=== PATIENT | male | born 1940 | race Caucasian/White ===

== ENCOUNTER 2016-08-10 00:01 | Emergency (ER) | payer MEDICARE ==
--- NOTE | 2016-08-10 02:25 | ERRECORD ---
[facility] EMERGENCY RECORD HPI GENERAL (:16 AGRE) CHIEF COMPLAINT: Patient presents for evaluation of HIGH BLOOD PRESSURE. HISTORIAN: History provided by patient, WAS TAKEN OFF HIS BLOOD PRESSURE MEDICATIONS AFTER ANGIOEDEMA WITH SOPHIE INHIBITORS. HIS CARDIVELOL WAS RESTARTED 3 DAYS AGO BUT HIS BLOOD PRESSURE IS REMAINING ELEVATED AT HOME. IT IS WORST TONIGHT. NO SOB, GARCIA, CHEST PAIN, NEURO CHANGES OR OTHER ASSOCIATED SYMPTOMS. SAYS TOOK THE CARVEDILOL X 2 IN PAST 24 HOURS, BUT NO HELP WITH HIS BLOOD PRESSURE. MECHANISM OF INJURY: Known mechanism. LOCATION: No localizing symptoms. QUALITY: NO PAINS. SEVERITY: Maximum severity of symptoms severe, Currently symptoms are severe. TIME COURSE: Gradual onset of symptoms, Symptoms are worsening. ASSOCIATED WITH: No associated symptoms, Denies any other complaints. EXACERBATED BY: Patient's condition exacerbated by nothing. RELIEVED BY: Patient's condition relieved by nothing. ROS (:19 AGRE) CONSTITUTIONAL: Historian denies chills, denies fever, denies lethargy, denies malaise. EYES: Historian denies eye pain, denies eye redness. ENT: Historian denies rhinorrhea, denies sinus pain, denies sore throat. CARDIOVASCULAR: Historian denies chest pain, denies dyspnea on exertion. RESPIRATORY: Historian denies cough, denies shortness of breath. GI: Historian denies abdominal pain, denies nausea, denies vomiting. MUSCULOSKELETAL: Historian denies back pain, denies neck pain. SKIN: Negative skin review of systems, Historian denies skin changes, denies skin lesions. NEUROLOGIC: Historian denies headache, denies mental status changes. PSYCHIATRIC: Negative psychiatric review of systems, Historian denies anxiety. PAST MEDICAL HISTORY (:05 EPIE) MEDICAL HISTORY: Notes: BPH, Past medical history includes history of hypertension and ingunal hernia bilat, recent chricoid procedure for angioedema. MALE SURGICAL HISTORY: HERNIA REPAIR. TURP, Vein stripping of right leg. PSYCHIATRIC HISTORY: No previous psychiatric history, no previous emergency department psychiatric evaluations. SOCIAL HISTORY: , Patient denies alcohol use, Patient &a-1R&a+25V*p+0X*e2297M*c202B*c15G*c2P*p-0X&a-25V&a+1R Name: Sharath House JR, DOB: 1940 M76 MedRec: [id number] AcctNum: [id number] Prepared: Aurelai Aug 10, 2016 03:08 by Interface Page 1 of 4 pMD [facility] EMERGENCY RECORD denies drug use, Patient currently uses tobacco, smokes cigarettes, daily, Patient smokes 2 packs per day. KNOWN ALLERGIES SOPHIE Inhibitors HYDROcodone bitartrate (bulk) CURRENT MEDICATIONS (: KASA) carvedilol: TABLET : Strength - 3.125 mg : ORAL Patient Dose: 1 tab(s) Oral once a day (in the morning). VITAL SIGNS VITAL SIGNS: BP: 211/108, Pulse: 62, Resp: 20, Pain: 0, O2 sat: 100 on Room Air, Time: 08/10/2016 01:03. (01:03 EPIE) BP: 192/92, Pulse: 62, O2 sat: 98 on Room Air, Time: 08/10/2016 01:34. (01:34 KASA) BP: 161/72, Pulse: 68, O2 sat: 95 on Room Air, Time: 08/10/2016 02:00. (02:00 KASA) BP: 156/73, Pulse: 67, O2 sat: 96 on Room Air, Time: 08/10/2016 02:05. (02:05 KASA) BP: 162/76, Pulse: 68 (Regular), Resp: 20 (Non-Labored), Temp: 98.4 (Oral), O2 sat: 97 on Room Air, Time: 08/10/2016 02:32. (02:32 LEEW) BP: 162/76, Pulse: 68, Resp: 20, Temp: 98.4, Time: 08/10/2016 02:34. (02:34 LEE) PHYSICAL EXAM (01:19 AGRE) CONSTITUTIONAL: Vital signs reviewed, Patient afebrile, Respiratory rate normal, Patient appears non toxic, Patient appears pain free, Patient alert and oriented to person, place and time, NURSES NOTES REVIEWED. HEAD: Head exam included findings of head atraumatic, normocephalic. EYES: Eye exam included findings of eyelids normal to inspection, Extraocular muscles intact, Conjunctiva normal, Sclera normal. ENT: Ear exam normal, Nose exam normal, Mouth exam normal. NECK: Neck exam normal, Neck exam included findings of normal range of motion, no meningeal signs, no cervical adenopathy. RESPIRATORY CHEST: Respiratory and chest exam normal, Respiratory exam included findings of no respiratory distress, Breath sounds clear, No wheezing, No rales, No rhonchi, Breath sounds not diminished. CARDIOVASCULAR: Cardiovascular exam included findings of heart rate regular rate and rhythm, Heart sounds normal, normal S1, normal S2, no murmurs, no rub, no gallop. ABDOMEN MALE: Abdominal exam normal, Abdominal exam included findings of abdomen nontender, Bowel sounds normal, Liver normal, Spleen normal, no distension, no mass. BACK: Back exam normal, Back exam included findings of normal inspection, range of motion normal. &a-1R&a+25V*p+0X*t7448Y*c202B*c15G*c2P*p-0X&a-25V&a+1R Name: Sharath House JR : 1940 M76 MedRec: [id number] AcctNum: [id number] Prepared: Aurelia Aug 10, 2016 03:08 by Interface Page 2 of 4 pMD [facility] EMERGENCY RECORD UPPER EXTREMITY: Upper extremity exam included findings of inspection normal, Range of motion normal. LOWER EXTREMITY: Lower extremity exam included findings of inspection normal, Range of motion normal, Motor strength normal, no edema, no calf tenderness, no palpable cords. NEURO: Neuro exam normal, Neuro exam findings include patient oriented to person, place and time, Speech normal, Gait normal, Memory normal, Cranial nerves intact, no focal motor deficits. SKIN: Skin exam normal, Skin exam included findings of skin warm, dry, and normal in color. LYMPHATIC: Lymphatic exam normal, Lymphatic exam included findings of cervical nodes normal. PSYCHIATRIC: Psychiatric exam normal, Normal affect. MEDICATION ADMINISTRATION SUMMARY Drug Name: hydrALAZINE injection, Dose Ordered: 20 mg, Route: IV Push, Status: Given, Time: 01:40 08/10/2016, Detailed record available in Medication Service section. DOCTOR NOTES (02:15 AGRE) TEXT: MARKED IMPROVEMENT IN BLOOD PRESSURE WITH THE HYDRALAZINE. PATIENT REMAINED ALERT AND ORIENTED WITHOUT NEURO CHANGES. DISCUSSED WITH HIM AND FAMILY A SHORT TERM PRESCRIPTION FOR THE HYDRALAZINE AND TO FOLLOW UP WITH HIS PHYSICIAN THIS WEEK ABOUT A SUSPECT ARTIST SUPERVISOR TREATMENT PLAN. HE EXPRESSED UNDERSTANDING AND AGREEMENT. PATIENT STATUS: Patient has improved since arrival to emergency department. PATIENT PLAN: The patient will be discharged. DATA REVIEWED: Discussed with family. PROBLEM LIST No recorded problems DIAGNOSIS (: YAZ) FINAL: PRIMARY: Hypertension. PRESCRIPTION (: [facility]) hydrALAZINE oral: TABLET : 10 mg : ORAL : Quantity: 1 Unit: tab(s) Route: ORAL Schedule: every 6 hours Dispense: 20 Unit: tab(s) May substitute. Refills: No Refills . NOTES: No Refills. DISPOSITION PATIENT: Disposition Type: Discharge, Disposition: *Discharge Home, Condition: Improved. (: YAZ) Patient left the department. (03: VALENTIN) Almazan: &a-1R&a+25V*p+0X*[id number]*c202B*c15G*c2P*p-0X&a-25V&a+1R Name: HarshSharath JR : 1940 76 MedRec: [id number] AcctNum: [id number] Prepared: Aurelia Aug 10, 2016 03:08 by Interface Page 3 of 4 pMD [facility] EMERGENCY RECORD YAZ=MD Willi, Tor PENA=RAMÓN Dejesus, Lisa HANSON=RAMÓN Wolfe, Siri GALVAN=RAMÓN Cotter, Ryan &a-1R&a+25V*p+0X*[id number]*c202B*c15G*c2P*p-0X&a-25V&a+1R Name: Harsh Sharath Hong : 1940 76 MedRec: [id number] AcctNum: [id number] Prepared: Aurelia Aug 10, 2016 03:08 by Interface Page 4 of 4 pMD MTDD
--- NOTE | 2016-08-10 02:28 | PICIS ---
[facility] EMERGENCY RECORD TRIAGE (ThuAug 10, 2016 01:01 EPIE) TRIAGE NOTES: Pt states that on the he had allergic rxn. Pt was taken off of blood pressure medication. Pt has been on new BP medication for 3 days. BP now states systolic is 205. (ThuAug 10, 2016 01:01 EPIE) PATIENT: NAME: Sharath House JR, AGE: 76, GENDER: male, : Maynard 1940, TIME OF GREET: ThuAug 10, 2016 00:02, PREFERRED LANGUAGE: Bulgarian, ETHNICITY: Not or , ECODE BILLING MAP: [facility], SSN: [id number], Zip Code: [address], KG WEIGHT: 72.57, PHONE: , , , PERSON ID: [id number], PCP: Johanna VARELA POLLACHI. (Maynard Aug 10, 2016 01:01 EPIE) COMPLAINT: High Blood Pressure. (Maynard Aug 10, 2016 01:01 EPIE) ADMISSION: URGENCY: 3 Urgent, ADMISSION SOURCE: Home, TRANSPORT: CAR, BED: TRIAGE. (ThuAug 10, 2016 01:01 EPIE) TRIAGE SCREENING: Patient denies suicidal ideation, Patient denies presence of domestic violence. (:05 EPIE) PROVIDERS: TRIAGE NURSE: Lisa Dejesus RN. (Maynard Aug 10, 2016 01:01 EPIE) VITAL SIGNS: BP 211/108, Pulse 62, Resp 20, Pain 0, O2 Sat 100, on Room Air, Time 08/10/2016 01:03. (01:03 EPIE) PREVIOUS VISIT ALLERGIES: Star Inhibitors, HYDROcodone bitartrate (bulk), Sulfa (Sulfonamide Antibiotics). (ThuAug 10, 2016 01:01 EPIE) Star Inhibitors, HYDROcodone bitartrate (bulk), Sulfa (Sulfonamide Antibiotics). (01:05 EPIE) KNOWN ALLERGIES STAR Inhibitors HYDROcodone bitartrate (bulk) CURRENT MEDICATIONS (:18 KASA) carvedilol: TABLET : Strength - 3.125 mg : ORAL Patient Dose: 1 tab(s) Oral once a day (in the morning). VITAL SIGNS VITAL SIGNS: BP: 211/108, Pulse: 62, Resp: 20, Pain: 0, O2 sat: 100 on Room Air, Time: 08/10/2016 01:03. (01:03 EPIE) BP: 192/92, Pulse: 62, O2 sat: 98 on Room Air, Time: 08/10/2016 01:34. (01:34 KASA) BP: 161/72, Pulse: 68, O2 sat: 95 on Room Air, Time: 08/10/2016 02:00. (02:00 KASA) BP: 156/73, Pulse: 67, O2 sat: 96 on Room Air, Time: 08/10/2016 02:05. (02:05 KASA) BP: 162/76, Pulse: 68 (Regular), Resp: 20 (Non-Labored), Temp: 98.4 (Oral), O2 sat: 97 on Room Air, Time: 08/10/2016 02:32. (02:32 LEEW) BP: 162/76, Pulse: 68, Resp: 20, Temp: 98.4, Time: 08/10/2016 02:34. (02:34 LEEW) &a-1R&a+25V*p+0X*g5565F*c202B*c15G*c2P*p-0X&a-25V&a+1R Name: Sharath House JR : 1940 M76 MedRec: [id number] AcctNum: [id number] Prepared: Aurelia Aug 10, 2016 03:13 by Interface Page 1 of 6 pMD [facility] EMERGENCY RECORD NURSING ASSESSMENT: CARDIOVASCULAR (:20 KASA) CONSTITUTIONAL: Patient arrives ambulatory, Gait steady, History obtained from patient, Patient appears comfortable, Patient cooperative, Patient alert, Oriented to person, place and time, Skin warm, Skin dry, Skin normal in color, Mucous membranes pink, Mucous membranes moist, Patient complains of High Blood Pressure, Pt states that on the he had allergic rxn. Pt was taken off of blood pressure medication. Pt has been on new BP medication for 3 days. BP now states systolic is 205. CARDIOVASCULAR: Cardiovascular assessment findings include heart rate normal, Heart sounds normal, Associated with diaphoresis, no associated dyspnea, no associated dizziness, no associated weakness. RESPIRATORY/CHEST: Breath sounds clear, Respiratory assessment findings include respiratory effort easy, Respirations regular, Conversing normally, Neck and chest exam findings include trachea midline, Chest expansion equal, Chest movement symmetrical, no signs of distress, no associated cough noted, no associated fever. SAFETY: Side rails up, Cart/Stretcher in lowest position, Family at bedside, Call light within reach, Hospital ID band on. NURSING PROCEDURE: DISCHARGE NOTE (02:34 LEE) DISCHARGE: Patient discharged to home, ambulating without assistance, family driving, accompanied by other family member, Summary of Care printed/ provided, Discharge instructions given to patient, Discharge instructions given to Daughter, Simple or moderate discharge teaching performed, by Ryan Cotter Rn, As discussed by Dr. Márquez, follow those instructions. Take medication Hydralazine as instructed then followup with PCP Thursday after the ., Prescriptions given and instructions on side effects given, Name of prescription(s) given: Hydralazine, Above person(s) verbalized understanding of discharge instructions and follow-up care, Patient treated and evaluated by physician. BELONGINGS: Belongings and valuables with patient at time of discharge include:, Belongings remain with patient, Valuables remain with patient. VITAL SIGNS: BP: 162, / 76, Pulse: 68, Resp: 20, Temp: 98.4. NURSING PROCEDURE: IV (:37 KASA) PATIENT IDENITIFIER: Patient actively involved in identification process, Patient's identity verified by patient stating name, Patient's identity verified by patient stating date. IV SITE 1: IV therapy indicated for medication administration, IV established, to the right antecubital, using a 20 gauge catheter, in one attempt, IV site prepped with chloraprep, Saline lock established, Flushed with normal saline (mls): 10, Labs drawn at time of placement, labeled in the presence of the patient and sent to lab. FOLLOW-UP SITE 1: After procedure, sterile transparent dressing applied. SAFETY: Side rails up, Cart/Stretcher in lowest position, Family &a-1R&a+25V*p+0X*s1192M*c202B*c15G*c2P*p-0X&a-25V&a+1R Name: Sharath House JR : 1940 M76 MedRec: [id number] AcctNum: [id number] Prepared: Aurelia Aug 10, 2016 03:13 by Interface Page 2 of 6 pMD [facility] EMERGENCY RECORD at bedside, Call light within reach, Hospital ID band on. MEDICATION ADMINISTRATION SUMMARY Drug Name: hydrALAZINE injection, Dose Ordered: 20 mg, Route: IV Push, Status: Given, Time: 01:40 08/10/2016, Detailed record available in Medication Service section. MEDICATION SERVICE (01:40 AGRE) hydrALAZINE injection: Order: hydrALAZINE injection (hydralazine HCl) - Dose: 20 mg : IV Push Ordered by: Tor Márquez MD Entered by: MD Aurelia Reyes Aug 10, 2016 01:16 , Acknowledged by: RAMÓN Alvarado Aug 10, 2016 01:37 Documented as given by: RAMÓN Alvarado Aug 10, 2016 01:40 Patient, Medication, Dose, Route and Time verified prior to administration. Amount given: 20 mg, IV SITE #1 IVP, initial medication, Slowly, Catheter placement confirmed via flush prior to administration, IV site without signs or symptoms of infiltration during medication administration, No swelling during administration, No drainage during administration, IV flushed after administration, Correct patient, time, route, dose and medication confirmed prior to administration, Patient advised of actions and side-effects prior to administration, Allergies confirmed and medications reviewed prior to administration, Patient in position of comfort, Side rails up, Cart in lowest position, Family at bedside. HPI GENERAL (01:16 AGRE) CHIEF COMPLAINT: Patient presents for evaluation of HIGH BLOOD PRESSURE. HISTORIAN: History provided by patient, WAS TAKEN OFF HIS BLOOD PRESSURE MEDICATIONS AFTER ANGIOEDEMA WITH STAR INHIBITORS. HIS CARDIVELOL WAS RESTARTED 3 DAYS AGO BUT HIS BLOOD PRESSURE IS REMAINING ELEVATED AT HOME. IT IS WORST TONIGHT. NO SOB, GARCIA, CHEST PAIN, NEURO CHANGES OR OTHER ASSOCIATED SYMPTOMS. SAYS TOOK THE CARVEDILOL X 2 IN PAST 24 HOURS, BUT NO HELP WITH HIS BLOOD PRESSURE. MECHANISM OF INJURY: Known mechanism. LOCATION: No localizing symptoms. QUALITY: NO PAINS. SEVERITY: Maximum severity of symptoms severe, Currently symptoms are severe. TIME COURSE: Gradual onset of symptoms, Symptoms are worsening. ASSOCIATED WITH: No associated symptoms, Denies any other complaints. EXACERBATED BY: Patient's condition exacerbated by nothing. RELIEVED BY: Patient's condition relieved by nothing. &a-1R&a+25V*p+0X*q1913W*c202B*c15G*c2P*p-0X&a-25V&a+1R Name: Sharath House JR : 1940 M76 MedRec: [id number] AcctNum: [id number] Prepared: Aurelia Aug 10, 2016 03:13 by Interface Page 3 of 6 pMD [facility] EMERGENCY RECORD ROS ( AGRE) CONSTITUTIONAL: Historian denies chills, denies fever, denies lethargy, denies malaise. EYES: Historian denies eye pain, denies eye redness. ENT: Historian denies rhinorrhea, denies sinus pain, denies sore throat. CARDIOVASCULAR: Historian denies chest pain, denies dyspnea on exertion. RESPIRATORY: Historian denies cough, denies shortness of breath. GI: Historian denies abdominal pain, denies nausea, denies vomiting. MUSCULOSKELETAL: Historian denies back pain, denies neck pain. SKIN: Negative skin review of systems, Historian denies skin changes, denies skin lesions. NEUROLOGIC: Historian denies headache, denies mental status changes. PSYCHIATRIC: Negative psychiatric review of systems, Historian denies anxiety. PAST MEDICAL HISTORY (: EPIE) MEDICAL HISTORY: Notes: BPH, Past medical history includes history of hypertension and ingunal hernia bilat, recent chricoid procedure for angioedema. MALE SURGICAL HISTORY: HERNIA REPAIR. TURP, Vein stripping of right leg. PSYCHIATRIC HISTORY: No previous psychiatric history, no previous emergency department psychiatric evaluations. SOCIAL HISTORY: , Patient denies alcohol use, Patient denies drug use, Patient currently uses tobacco, smokes cigarettes, daily, Patient smokes 2 packs per day. PHYSICAL EXAM (: AGRE) CONSTITUTIONAL: Vital signs reviewed, Patient afebrile, Respiratory rate normal, Patient appears non toxic, Patient appears pain free, Patient alert and oriented to person, place and time, NURSES NOTES REVIEWED. HEAD: Head exam included findings of head atraumatic, normocephalic. EYES: Eye exam included findings of eyelids normal to inspection, Extraocular muscles intact, Conjunctiva normal, Sclera normal. ENT: Ear exam normal, Nose exam normal, Mouth exam normal. NECK: Neck exam normal, Neck exam included findings of normal range of motion, no meningeal signs, no cervical adenopathy. RESPIRATORY CHEST: Respiratory and chest exam normal, Respiratory exam included findings of no respiratory distress, Breath sounds clear, No wheezing, No rales, No rhonchi, Breath sounds not diminished. CARDIOVASCULAR: Cardiovascular exam included findings of heart rate regular rate and rhythm, Heart sounds normal, normal S1, normal S2, no murmurs, no rub, no gallop. &a-1R&a+25V*p+0X*n9136R*c202B*c15G*c2P*p-0X&a-25V&a+1R Name: Sharath House JR : 1940 M76 MedRec: [id number] AcctNum: [id number] Prepared: Aurelia Aug 10, 2016 03:13 by Interface Page 4 of 6 pMD [facility] EMERGENCY RECORD ABDOMEN MALE: Abdominal exam normal, Abdominal exam included findings of abdomen nontender, Bowel sounds normal, Liver normal, Spleen normal, no distension, no mass. BACK: Back exam normal, Back exam included findings of normal inspection, range of motion normal. UPPER EXTREMITY: Upper extremity exam included findings of inspection normal, Range of motion normal. LOWER EXTREMITY: Lower extremity exam included findings of inspection normal, Range of motion normal, Motor strength normal, no edema, no calf tenderness, no palpable cords. NEURO: Neuro exam normal, Neuro exam findings include patient oriented to person, place and time, Speech normal, Gait normal, Memory normal, Cranial nerves intact, no focal motor deficits. SKIN: Skin exam normal, Skin exam included findings of skin warm, dry, and normal in color. LYMPHATIC: Lymphatic exam normal, Lymphatic exam included findings of cervical nodes normal. PSYCHIATRIC: Psychiatric exam normal, Normal affect. EVENTS TRANSFER: Triage to Emergency Triage. (Aurelia Aug 10, 2016 01:01 EPIE) Emergency Triage to Emergency Room -03. (01:02 EPIE) Removed from Emergency Emergency Room -03. (03:06 KASA) O2SAT INTERPRETATION (02:14 AGRE) O2SAT: Continuous pulse oximetry, Oxygen saturation 96%, on room air, Oxygen saturation interpretation: Normal, No intervention required. DOCTOR NOTES (02:15 AGRE) TEXT: MARKED IMPROVEMENT IN BLOOD PRESSURE WITH THE HYDRALAZINE. PATIENT REMAINED ALERT AND ORIENTED WITHOUT NEURO CHANGES. DISCUSSED WITH HIM AND FAMILY A SHORT TERM PRESCRIPTION FOR THE HYDRALAZINE AND TO FOLLOW UP WITH HIS PHYSICIAN THIS WEEK ABOUT A PRINTED FORMS PROOFREADER TREATMENT PLAN. HE EXPRESSED UNDERSTANDING AND AGREEMENT. PATIENT STATUS: Patient has improved since arrival to emergency department. PATIENT PLAN: The patient will be discharged. DATA REVIEWED: Discussed with family. PROBLEM LIST No recorded problems DIAGNOSIS (02:05 [facility]) FINAL: PRIMARY: Hypertension. DISPOSITION PATIENT: Disposition Type: Discharge, Disposition: *Discharge &a-1R&a+25V*p+0X*a4116O*c202B*c15G*c2P*p-0X&a-25V&a+1R Name: Sharath House JR : 1940 M76 MedRec: [id number] AcctNum: [id number] Prepared: Aurelia Aug 10, 2016 03:13 by Interface Page 5 of 6 pMD [facility] EMERGENCY RECORD Home, Condition: Improved. (02:05 [facility]) Patient left the department. (03:06 [facility]) INSTRUCTION (02:12 [facility]) DISCHARGE: HYPERTENSION, ESTABLISHED, OUT OF CONTROL. FOLLOWUP: Johanna VARELA, KEO, Internal Medicine, [address] [place] [id number], [phone]. SPECIAL: START THE HYDRALAZINE AND CHECK YOUR BLOOD PRESSURE REGULARLY TO MAKE SURE IT IS CONTROLLING THE PRESSURE. FOLLOW UP WITH YOUR PHYSICIAN THIS WEEK ABOUT CHANGING YOUR MEDICATIONS. YOU PHYSICIAN MAY NOT WANT TO CONTINUE THE HYDRALAZINE FOR A LONG TIME IT CAN A LUPUS LIKE RESPONSE IN SOME PEOPLE DISCUSSED. PRESCRIPTION (02:09 [facility]) hydrALAZINE oral: TABLET : 10 mg : ORAL : Quantity: 1 Unit: tab(s) Route: ORAL Schedule: every 6 hours Dispense: 20 Unit: tab(s) May substitute. Refills: No Refills . NOTES: No Refills. IMAGING *DISCHARGE INSTRUCTIONS RECEIPT: Image captured from scanner. (02:38 [facility]) *SUPPLY CHARGE SHEET: Image captured from scanner. (02:39 [facility]) ADMIN (02:17 [facility]) DIGITAL SIGNATURE: MD Márquez Andrea. Almazan: AGRE=MD Willi, Tor PENA=RAMÓN Dejesus, Lisa HANSON=RAMÓN Wolfe, Siri GALVAN=RAMÓN Cotter, Ryan &a-1R&a+25V*p+0X*i7882R*c202B*c15G*c2P*p-0X&a-25V&a+1R Name: Sharath House JR : 1940 M76 MedRec: [id number] AcctNum: [id number] Prepared: Aurelia Aug 10, 2016 03:13 by Interface Page 6 of 6 pMD MTDD
== END 2016-08-10 02:34 | disposition home or self-care (01) ==
LOC: NAV ERS 00:01
DX: I10 Essential (primary) hypertension (principal); F17.210 Nicotine dependence, cigarettes, uncomplicated
CPT/HCPCS: 96374; J0360

== ENCOUNTER 2018-04-20 21:21 | Emergency (ER) | payer MEDICARE ==
[2018-04-20] MEDS ORDERED: Nitroglycerin 2% Ointment 1 INCH/1 GM Packet ONE (21:48)
[2018-04-20] MEDS ORDERED: cloNIDine 0.1 MG TAB ONE (21:51)
[2018-04-20 21:54] LABS: #Basophils 0.1 thou/uL (0.0-0.2); #Eosinphils 0.3 thou/uL (0.0-0.7); #Lymphocytes 4.4 thou/uL (1.20-3.40); #Monocytes 1.2 thou/uL (0.11-0.59); #Neutrophils 4.4 thou/uL (1.40-6.50); %Basophils 1.2 % (0.0-1.0); %Monocytes 11.4 % (0.0-10.0); %Neutrophils 42.4 % (42.0-75.0); Hemoglobin 16.5 g/dL (14.0-18.0); Mean Corpuscular HGB CONC 31.8 g/dL (32.0-36.0); Mean Corpuscular Hemoglobin 28.8 pg (27.0-31.0); Mean Corpuscular Volume 90.5 fL (78.0-98.0); Mean Platelet Volume 8.1 fL (7.4-10.4); Platelet Count 276 thou/uL (130-400); RBC Distribution Width 12.2 % (11.5-14.5); Red Blood Cell (RBC) Count 5.72 mill/uL (4.70-6.10); White Blood Cell (WBC) Count 10.4 thou/uL (4.8-10.8)
[2018-04-20 22:08] LABS: ALT (SGPT) 13 U/L (8-55); AST (SGOT) 14 U/L (5-34); Albumin 4.2 g/dL (3.4-4.8); Alkaline Phosphatase 100 U/L (40-150); Anion Gap 15 mmol/L (10-20); BUN (Urea Nitrogen) 11 mg/dL (8.4-25.7); Bilirubin, Total 0.4 mg/dL (0.2-1.2); Calc. Creatinine Clearance 0 mL/min (70-130); Calcium 9.6 mg/dL (7.8-10.44); Carbon Dioxide 26 mmol/L (23-31); Chloride 103 mmol/L (98-107); Estimated GFR-MDRD 66; Globulin 3.5 g/dL (2.4-3.5); Glucose 101 mg/dL (83-110); Potassium 3.5 mmol/L (3.5-5.1); Protein, Total 7.7 g/dL (5.8-8.1); Sodium 140 mmol/L (136-145)
[2018-04-20 22:10] LABS: CKMB 1.3 ng/mL (0-6.6); Troponin I Less than 0.010 ng/mL (< 0.028)
--- NOTE | 2018-04-20 22:12 | RAD ---
TWO VIEWS OF THE CHEST: 04/20/18 COMPARISON: 07/28/16 HISTORY: Elevated blood pressure. FINDINGS: Two views of the chest show normal sized cardiomediastinal silhouette. Scarring see in the left apex. There is no evidence of consolidation, mass, or pleural effusion. IMPRESSION: No evidence of acute cardiopulmonary disease. POS: [facility]
== END 2018-04-20 22:35 | disposition home or self-care (01) ==
LOC: NAV ERS 21:21
DX: I16.0 Hypertensive urgency (principal); I10 Essential (primary) hypertension; F17.210 Nicotine dependence, cigarettes, uncomplicated; Z79.899 Other long term (current) drug therapy
CPT/HCPCS: 71046; 80053; 82553; 84484; 85025; 93005; 94760; 99406

== ENCOUNTER 2018-04-22 12:17 | Outpatient (CLI) | payer MEDICARE ==
--- NOTE | 2018-04-22 13:35 | ULT ---
CAROTID ULTRASOUND: HISTORY: Left carotid bruit. COMPARISON: None. TECHNIQUE: Serrano-scale, color-flow, and Doppler evaluation with spectral wave-form analysis was performed in the carotid and vertebral arteries. FINDINGS: RIGHT CAROTID: There is calcified plaque in the common carotid artery. The peak systolic velocity i n the common carotid artery is 115 cm per second. The peak systolic velocity in the internal carotid artery is 74 cm per second. The systolic ICA/CCA ratio is 0.64. LEFT CAROTID: No significant atherosclerotic disease. The peak systolic velocity in the common heath tid artery is 86 cm per second. The peak systolic velocity in the internal carotid artery is 66 cm p er second. The systolic ICA/CCA ratio is 0.76. Antegrade flow in the bilateral vertebral arteries. IMPRESSION: No sonographic evidence of hemodynamically significant stenosis. POS: [facility]
== END 2018-04-22 12:18 | disposition home or self-care (01) ==
LOC: NAV ULT 12:17
PROVIDERS: ATTEND Internal Medicine
DX: I11.9 Hypertensive heart disease without heart failure (principal); R09.89 Other specified symptoms and signs involving the circulatory and respiratory systems
CPT/HCPCS: 93880

== ENCOUNTER 2018-06-15 23:21 | Emergency (ER) | payer MEDICARE ==
[2018-06-15] MEDS ORDERED: Ondansetron ODT 4 MG TAB ONE (23:43)
[2018-06-15 23:51] LABS: #Basophils 0.1 thou/uL (0.0-0.2); #Eosinphils 0.3 thou/uL (0.0-0.7); #Lymphocytes 4.2 thou/uL (1.20-3.40); #Neutrophils 3.8 thou/uL (1.40-6.50); %Basophils 0.9 % (0.0-1.0); %Eosinophils 3.5 % (0.0-10.0); %Lymphocytes 44.4 % (21.0-51.0); %Monocytes 10.6 % (0.0-10.0); %Neutrophils 40.6 % (42.0-75.0); Mean Corpuscular HGB CONC 33.2 g/dL (32.0-36.0); Mean Corpuscular Hemoglobin 29.8 pg (27.0-31.0); Mean Corpuscular Volume 89.8 fL (78.0-98.0); Platelet Count 267 thou/uL (130-400); RBC Distribution Width 11.8 % (11.5-14.5); Red Blood Cell (RBC) Count 5.37 mill/uL (4.70-6.10); White Blood Cell (WBC) Count 9.3 thou/uL (4.8-10.8)
--- NOTE | 2018-06-16 00:02 | CT ---
CT OF THE BRAIN WITHOUT CONTRAST: 06/15/18 INDICATION: Elevated blood pressure and dizziness. COMPARISON: None. FINDINGS: There is mild generalized cerebral and cerebellar atrophy. There is mild chronic small vessel white m atter ischemic change. Septum pellucidum and third ventricle are midline. Prominent mucosal thickenin g is seen within the ethmoid air cells, visualized right maxillary and right sphenoid sinus. There i s prominent mucosal thickening in the right frontal sinus. Skull is intact. IMPRESSION: 1. No acute intracranial abnormality. 2. Severe paranasal sinus disease. POS: [facility]
[2018-06-16 00:09] LABS: ALT (SGPT) 11 U/L (8-55); AST (SGOT) 13 U/L (5-34); Alkaline Phosphatase 83 U/L (40-150); Anion Gap 14 mmol/L (10-20); BUN (Urea Nitrogen) 17 mg/dL (8.4-25.7); Bilirubin, Total 0.3 mg/dL (0.2-1.2); Calc. Creatinine Clearance 0 mL/min (70-130); Calcium 9.8 mg/dL (7.8-10.44); Carbon Dioxide 26 mmol/L (23-31); Chloride 106 mmol/L (98-107); Estimated GFR-MDRD 48; Globulin 3.4 g/dL (2.4-3.5); Glucose 115 mg/dL (83-110); Potassium 3.8 mmol/L (3.5-5.1); Protein, Total 7.4 g/dL (5.8-8.1); Sodium 142 mmol/L (136-145)
[2018-06-16 00:11] LABS: CKMB 1.3 ng/mL (0-6.6); Troponin I 0.017 ng/mL (< 0.028)
== END 2018-06-16 00:44 | disposition home or self-care (01) ==
LOC: NAV ERS 23:21
DX: I10 Essential (primary) hypertension (principal); F17.210 Nicotine dependence, cigarettes, uncomplicated; Z79.899 Other long term (current) drug therapy
CPT/HCPCS: 36415; 70450; 80053; 82553; 84484; 85025; 93005; Q0162

== ENCOUNTER 2020-06-04 09:08 | Outpatient (CLI) | payer MEDICARE ==
--- NOTE | 2020-06-04 11:14 | CT ---
CT ABDOMEN AND PELVIS WITHOUT CONTRAST: Date: 06/04/2020 HISTORY: Follow-up right adrenal mass. FINDINGS: The right adrenal mass consistent with benign adenoma was also seen on 12/21/2019 and 12/07/2007, and is essentially stable. Absence of oral and IV contrast reduces the sensitivity of exam, particularly for evaluation of solid organs and bowel. The lung bases are stable since 12/21/2019. No calcified gallstones are seen. No free air or free fluid seen in the abdomen or pelvis. The small bowel loops are not abnormally dilated. There is colonic diverticulosis. A normal appearing appendix is present. No calculi seen in the kidneys, ureters, or the urinary bladder. A 3.0 cm cortical cyst is seen in th e posterior aspect of the inferior pole of the left kidney. A retroaortic left renal vein is present. There are vascular calcifications without evidence of aneurysmal dilatation of the abdominal aorta. M ultilevel degenerative changes are present. IMPRESSION: 1. Right adrenal adenoma. 2. Colonic diverticulosis. 3. No CT evidence of urinary tract calculi or obstruction. 4. Left renal cyst. POS: OFF
== END 2020-06-04 09:09 | disposition home or self-care (01) ==
LOC: NAV CT 09:08
PROVIDERS: ATTEND Internal Medicine
DX: E27.8 Other specified disorders of adrenal gland (principal); D35.01 Benign neoplasm of right adrenal gland; K57.30 Diverticulosis of large intestine without perforation or abscess without bleeding; N28.1 Cyst of kidney, acquired
CPT/HCPCS: 74176

== ENCOUNTER 2021-09-30 18:03 | Emergency (ER) | payer MEDICARE ==
[2021-09-30] MEDS ORDERED: Nitroglycerin 0.4 MG TAB (25 Tab Bottle) ONE (18:16)
[2021-09-30] MEDS ORDERED: Aspirin Chewable 81 MG TAB ONE (18:16)
[2021-09-30] MEDS ORDERED: Ondansetron ODT 4 MG TAB ONE (18:16)
[2021-09-30 18:21] LABS: #Basophils 0.2 thou/uL (0.0-0.2); #Eosinphils 0.5 thou/uL (0.0-0.7); #Lymphocytes 4.4 thou/uL (1.20-3.40); #Monocytes 1.1 thou/uL (0.11-0.59); #Neutrophils 8.3 thou/uL (1.40-6.50); %Basophils 1.1 % (0.0-1.0); %Eosinophils 3.3 % (0.0-10.0); %Lymphocytes 30.5 % (21.0-51.0); %Monocytes 7.7 % (0.0-10.0); %Neutrophils 57.4 % (42.0-75.0); Mean Corpuscular HGB CONC 32.4 g/dL (32.0-36.0); Mean Corpuscular Volume 89.5 fL (78.0-98.0); Mean Platelet Volume 7.3 fL (7.4-10.4); Platelet Count 297 thou/uL (130-400); RBC Distribution Width 12.6 % (11.5-14.5); White Blood Cell (WBC) Count 14.4 thou/uL (4.8-10.8)
[2021-09-30] MEDS ORDERED: Heparin 5,000 UNITS/ML VIAL ONE (18:22)
[2021-09-30 18:31] LABS: INR-International Normal Ratio 0.9; Prothrombin Time 12.7 sec (12.0-14.7)
[2021-09-30 18:32] LABS: PTT 27.7 sec (22.9-36.1)
[2021-09-30 18:40] LABS: ALT (SGPT) 21 U/L (8-55); AST (SGOT) 15 U/L (5-34); Albumin 4.6 g/dL (3.4-4.8); Alkaline Phosphatase 98 U/L (40-110); Anion Gap 17 mmol/L (10-20); BUN (Urea Nitrogen) 16 mg/dL (8.4-25.7); Bilirubin, Total 0.4 mg/dL (0.2-1.2); Calc. Creatinine Clearance 0 mL/min (70-130); Calcium 9.8 mg/dL (7.8-10.44); Carbon Dioxide 22 mmol/L (23-31); Chloride 103 mmol/L (98-107); Globulin 4.1 g/dL (2.4-3.5); Glucose 214 mg/dL (83-110); Potassium 3.5 mmol/L (3.5-5.1); Protein, Total 8.7 g/dL (5.8-8.1); Sodium 138 mmol/L (136-145)
[2021-09-30] MEDS ORDERED: Morphine 4 MG/ML VIAL ONE ×2 (18:41→18:54)
[2021-09-30 18:58] LABS: CKMB 2.7 ng/mL (0-6.6)
[2021-09-30 19:45] LABS: SARS-CoV-2 NAA Rapid Test DETECTED (NotDetected)
== END 2021-09-30 19:02 | disposition short-term general hospital (02) ==
LOC: NAV ERS 18:03
DX: U07.1 COVID-19 (principal); I21.9 Acute myocardial infarction, unspecified; I10 Essential (primary) hypertension; F17.210 Nicotine dependence, cigarettes, uncomplicated; Z87.19 Personal history of other diseases of the digestive system
CPT/HCPCS: 71045; 80053; 82553; 83880; 84484; 85025; 85610; 85730; 93005; 94760; 96374; 96375; 99285; U0002; J1644; J2270; Q0162